=== PATIENT | female | born 1955 | race Caucasian/White ===

== ENCOUNTER 2020-08-24 08:53 | Outpatient (CLI) | payer MEDICARE, SELFPAY ==
--- NOTE | ~2020-08-24 | CT_ITS ---
EXAMINATION: CT chest high resolution wo nj DATE: 08/24/2020 09:45 INDICATION: Chronic cough, shortness of breath, COPD and asthma TECHNIQUE: Computed tomography (CT) of the chest was performed without intravenous contrast. The dose -length product was 602.60 mGy-cm. Automated exposure control and iterative reconstruction technique were employed. COMPARISON: None FINDINGS: No significant pleural or pericardial effusion. There is atherosclerosis. No aneurysm. Calc ified mediastinal lymph nodes, consistent with chronic granulomatous disease. There are a few small c alcified pulmonary nodules. There are calcified granulomas in the spleen. Unremarkable thyroid gland. Mild paraseptal emphysema. 2 mm left upper lobe nodule, likely benign, ax ial image 29. Mild thoracic spondylosis. No acute osseous abnormality. IMPRESSION: 1. Mild paraseptal emphysema. 2: Left upper lobe nodule measuring 2 mm, likely benign. Reviewed, dictated and finalized at location B.
== END 2020-08-24 08:54 | disposition home or self-care (01) ==
PROVIDERS: PCP Internal Medicine; Visit Provider Nurse Practitioner Family
DX: J41.0 Simple chronic bronchitis (principal); R09.3 Abnormal sputum; J43.9 Emphysema, unspecified; R91.1 Solitary pulmonary nodule
CPT/HCPCS: 71250

== ENCOUNTER 2023-10-13 01:24 | Day surgery (SDC) | payer MEDICARE, SELFPAY ==
[2023-09-27 12:59] VITALS: BMI 37.8
--- NOTE | 2023-10-11 10:18 | SUR.PREOP ---
Patient called regarding upcoming procedure. Message left on patient's voicemail regarding preop instructions, appointment times, and procedure prep.
[2023-10-13 07:23] VITALS: BP 144/74; PULSE 87; RESP 20; TEMP 36.4; O2SAT 96
[2023-10-13] MEDS: LACTATED RINGERS 1,000 ML 150 ML IV CONT (07:36)
--- NOTE | 2023-10-13 08:13 | WPDANESEPPF ---
Anes - Initial Pre Proc Eval Procedure: Operation Date: 10/13/23 08:30 Proposed Procedures p Screening Colonoscopy - Garrison Will MD Date/Time: 10/13/23 08:13 Surgeon: Garrison Will MD Pre Op Diagnosis: neoplasm screening Patient Data Age: 68 Gender: F Height: 1.63 m Weight: 96.7 kg Last Vital Signs Temp 97.6 F 10/13/23 07:23 Pulse 87 10/13/23 07:23 Resp 20 10/13/23 07:23 BP 144/74 H 10/13/23 07:23 Pulse Ox 96 10/13/23 07:23 O2 Del Method Room Air 10/13/23 07:23 Allergies Allergy/AdvReac Type Severity Reaction Status Date / Time No Known Allergies Allergy Verified 10/13/23 07:21 Home Medications Medication Instructions Recorded Confirmed Type inhalational spacing device #1 ea 06/08/20 09/11/23 Rx (Aerochamber MV spacer) alprazolam 0.5 mg tablet 0.5 mg PO BID PRN anxiety #60 tabs 07/04/23 09/27/23 Rx atorvastatin 80 mg tablet See Rx Instructions .Route 08/29/23 09/27/23 Rx .COMPLEX #90 tabs cariprazine 4.5 mg capsule See Rx Instructions .Route 08/29/23 09/27/23 Rx (Vraylar) .COMPLEX #90 caps triamcinolone acetonide 0.1 % 1 applic topical BID PRN rash #80 09/11/23 09/27/23 Rx topical cream grams nebivolol 10 mg tablet See Rx Instructions .Route 09/12/23 09/27/23 Rx .COMPLEX #90 tabs benzonatate 200 mg capsule 200 mg PO DAILY 09/27/23 09/27/23 History semaglutide (weight loss) 2.4 2.4 mg subcut WEEKLY 09/27/23 10/13/23 History mg/0.75 mL subcutaneous pen injector Patient hx anesthesia problems: none Family hx anesthesia problems: none Results Review: All pre-operative results and documents have been reviewed as part of the pre-operative evaluation. [facility] Past Medical History Medical History ) Anxiety disorder Chronic obstructive pulmonary disease, unspecified Diastolic dysfunction GERD (gastroesophageal reflux disease) Insomnia Mixed hyperlipidemia Surgical History Surgical History ) History of appendectomy History of hernia surgery pt had 4 Family History Family History ) Father Carcinoma of colon Mother Breast cancer Carcinoma of colon Grandparent Breast cancer Social History Social History ) Smoking packs per day: 1 Smoking cigarettes per day: 20.0 Years smoked: 20 Smoking pack-years: 20.00 Smoking status: Former smoker Tobacco type: cigarettes Second hand tobacco smoke exposure: Yes Alcohol intake: never Drinks per week: 1 Alcohol use details: rum Substance use: current Substance use type: other Other substance usage details: GUMMIES AT Living arrangements: with family Occupation/Education: retired Gender identity (if verbalized by the patient): Female Spiritual care concerns: No Agree to blood products: Yes Anes - Eval Final PreProcedure Day of Procedure 10/13/23 08:13 Patient weight: obese Heart: regular rate and rhythm Lungs: clear to auscultation Airway: Mallampati scale class II Neurological: alert and oriented Last oral intake: >/= 8 hours ASA classification: III Emergent: no Anesthetic plan: proceed Anesthesia type and monitoring: general GIVS and standard monitoring Results Review: All pre-operative results and documents have been reviewed as part of the pre-operative evaluation. Informed Consent: The patient's anesthetic plan and its attendant risks and benefits were discussed with the patient/family/POA. Questions were solicited and answers provided to the satisfaction of the patient/family/POA.
--- NOTE | 2023-10-13 08:21 | PM.HPGS ---
History of Present Illness History of Present Illness Consent: Risks, benefits, and alternatives have been discussed and questions answered. Patient agrees to proceed with procedure. Chief complaint: neoplasm screening Narrative: Rema Correa is a 68 year old female with colon polyp but last colonoscopy 5 years ago did not have any Review of Systems Constitutional: Constitutional: Denies headache(s) and Denies weakness Eyes: Eyes: Denies blurry vision ENT: Reports Normal hearing present, Denies headache(s) and Denies neck pain Cardiovascular: Cardiovascular: Denies chest pain and Denies dyspnea Respiratory: Respiratory: Denies dyspnea Gastrointestinal: Gastrointestinal: Reports no additional gastrointestinal complaints Genitourinary: Genitourinary: Denies dysuria Musculoskeletal: Musculoskeletal: Denies neck pain Integumentary/Breasts: Skin/Breast: Denies dry skin Neurologic: Reports Normal hearing present, Denies headache(s) and Denies weakness Psychiatric: Psychiatric: Denies anxiety Endocrine: Endocrine: Denies change in body appearance Hematologic/Lymphatic: Hematologic/Lymphatic: Denies easy bleeding Allergic/Immunologic: Allergic/Immunologic: Denies urticaria PMF Past Medical History Medical History (Updated 10/13/23 @ 08:21 by Garrison Will MD) Anxiety disorder Chronic obstructive pulmonary disease, unspecified Colon polyp Diastolic dysfunction GERD (gastroesophageal reflux disease) Insomnia Mixed hyperlipidemia Surgical History Surgical History ) History of appendectomy History of hernia surgery pt had 4 Family History Family History ) Father Carcinoma of colon Mother Breast cancer Carcinoma of colon Grandparent Breast cancer Social History Social History ) Smoking packs per day: 1 Smoking cigarettes per day: 20.0 Years smoked: 20 Smoking pack-years: 20.00 Smoking status: Former smoker Tobacco type: cigarettes Second hand tobacco smoke exposure: Yes Alcohol intake: never Drinks per week: 1 Alcohol use details: rum Substance use: current Substance use type: other Other substance usage details: GUMMIES AT Living arrangements: with family Occupation/Education: retired Gender identity (if verbalized by the patient): Female Spiritual care concerns: No Agree to blood products: Yes Meds Home Medications and Allergies Home Medications Medication Instructions Recorded Confirmed Type inhalational spacing device #1 ea 06/08/20 09/11/23 Rx (Aerochamber MV spacer) alprazolam 0.5 mg tablet 0.5 mg PO BID PRN anxiety #60 tabs 07/04/23 09/27/23 Rx atorvastatin 80 mg tablet See Rx Instructions .Route 08/29/23 09/27/23 Rx .COMPLEX #90 tabs cariprazine 4.5 mg capsule See Rx Instructions .Route 08/29/23 09/27/23 Rx (Vraylar) .COMPLEX #90 caps triamcinolone acetonide 0.1 % 1 applic topical BID PRN rash #80 09/11/23 09/27/23 Rx topical cream grams nebivolol 10 mg tablet See Rx Instructions .Route 09/12/23 09/27/23 Rx .COMPLEX #90 tabs benzonatate 200 mg capsule 200 mg PO DAILY 09/27/23 09/27/23 History semaglutide (weight loss) 2.4 2.4 mg subcut WEEKLY 09/27/23 10/13/23 History mg/0.75 mL subcutaneous pen injector Allergies Allergy/AdvReac Type Severity Reaction Status Date / Time No Known Allergies Allergy Verified 10/13/23 07:21 Vital Signs Vital Signs - 24 hr 10/13/23 07:23 Temperature 97.6 F Pulse Rate 87 Respiratory Rate 20 Blood Pressure 144/74 H Pulse Oximetry 96 Oxygen Delivery Room Air Exam Const: General: comfortable and no acute distress HENMT: Face/Nose/Sinus: Normal nares present Eyes: General: appearance normal, both eyes and all related structures Neck: Neck: no JVD Resp: Auscultation: galdino
[2023-10-13 08:47] VITALS: BP 127/70; PULSE 94; RESP 16; O2SAT 100
[2023-10-13 08:57] VITALS: BP 118/73; PULSE 79; RESP 22; O2SAT 100
[2023-10-13 09:07] VITALS: BP 118/73; PULSE 77; RESP 15; O2SAT 100
== END 2023-10-13 09:16 | disposition home or self-care (01) ==
PROVIDERS: PCP Family Medicine; Visit Provider Internal Medicine Gastroenterology
PROC: 0DJD8ZZ Inspection of Lower Intestinal Tract, Via Natural or Artificial Opening Endoscopic (ICD-10-PCS; CPT 45378; principal; 2023-10-13 08:30)
DX: Z12.11 Encounter for screening for malignant neoplasm of colon (principal); K57.30 Diverticulosis of large intestine without perforation or abscess without bleeding; K64.8 Other hemorrhoids; Z86.010 Personal history of colon polyps; J44.9 Chronic obstructive pulmonary disease, unspecified; E78.2 Mixed hyperlipidemia; K21.9 Gastro-esophageal reflux disease without esophagitis; F41.9 Anxiety disorder, unspecified; Z87.891 Personal history of nicotine dependence; E66.9 Obesity, unspecified; Z68.36 Body mass index [BMI] 36.0-36.9, adult; Z79.51 Long term (current) use of inhaled steroids; Z79.85 Long-term (current) use of injectable non-insulin antidiabetic drugs
CPT/HCPCS: G0105; J2704; J7120